=== PATIENT | male | born 1945 | race Caucasian/White ===

== ENCOUNTER 2018-05-19 23:53 | Observation (INO) | payer MEDICARE, OTHER ==
[2018-05-20] MEDS ORDERED: MORPHINE SULFATE 10 MG/ML INJ IV ONE (00:26)
[2018-05-20] MEDS ORDERED: ONDANSETRON HCL INJ/PF 4 MG/2 ML SDV IV ONE (00:26)
[2018-05-20] MEDS ORDERED: NORMAL SALINE 1000 ML 1,000 ML IV ONE ×2 (00:26→01:34)
[2018-05-20 00:58] LABS: ABSOLUTE EOSINOPHILS # (AUTO) 0.1 10^3/uL (0.0-0.6); ABSOLUTE MONOCYTES (AUTO) 1.2 10^3/uL (0.1-1.4); ABSOLUTE NEUT (AUTO) 12.4 10^3/uL (1.7-8.2); BASOPHILS % (AUTO) 0.3 % (0-2); EOSINOPHILS % (AUTO) 0.8 % (0-6); HEMATOCRIT 45.2 % (37.9-51.0); HEMOGLOBIN 15.1 g/dL (13.5-17.0); LYMPHOCYTES % (AUTO) 6.8 % (13-45); MEAN CORPUSCULAR HEMOGLOBIN 30.1 pg (27.0-33.4); MEAN CORPUSCULAR HGB CONC 33.5 g/dL (32.0-36.0); MEAN CORPUSCULAR VOLUME 90 fl (80-97); MONOCYTES % (AUTO) 7.9 % (3-13); PLATELET COUNT 284 10^3/uL (150-450); RED BLOOD COUNT 5.03 10^6/uL (4.35-5.55); SEGMENTED NEUTROPHILS % (AUTO) 84.2 % (42-78); TOTAL CELLS COUNTED % (AUTO) 100 %; WHITE BLOOD COUNT 14.8 10^3/uL (4.0-10.5)
--- NOTE | 2018-05-20 01:00 | RADIOLOGY REPORT (SQ) ---
EXAM DESCRIPTION: XR ABDOMEN SUPINE AND ERECT WITH CHEST (ABD ACUTE SERIES) COMPLETED DATE/TME: 05/20/2018 00:24 CLINICAL HISTORY: 72 years, Male, RLQ abd pain COMPARISON: None. FINDINGS: The lungs are clear. There are no pleural abnormalities. The cardiac silhouette and pulmonary vessels are normal. Scattered gas-filled loops of bowel throughout the abdomen. Multiple air-fluid levels in the right lower quadrant. No abnormal calcifications. No acute osseous abnormality. Vascular stent projected over the distal aorta and right renal artery.. IMPRESSION: Mild gaseous dilatation of the bowel and multiple air-fluid levels suggesting obstruction. Recommend correlation with CT. No acute cardiopulmonary disease.
[2018-05-20 01:11] LABS: ALANINE AMINOTRANSFERASE 30 U/L (21-72); ALBUMIN 4.5 g/dL (3.5-5.0); ALKALINE PHOSPHATASE 65 U/L (38-126); ANION GAP 13 (5-19); ASPARTATE AMINO TRANSFERASE 19 U/L (17-59); BILIRUBIN,DIRECT 0.4 mg/dL (0.0-0.4); BILIRUBIN,TOTAL 0.8 mg/dL (0.2-1.3); BLOOD UREA NITROGEN 39 mg/dL (7-20); CALCIUM 9.8 mg/dL (8.4-10.2); CARBON DIOXIDE 25 mmol/L (22-30); CHLORIDE 107 mmol/L (98-107); CREATINE KINASE 36 U/L (55-170); GLUCOSE 118 mg/dL (75-110); POTASSIUM 4.8 mmol/L (3.6-5.0); SODIUM 144.8 mmol/L (137-145); TOTAL PROTEIN 7.3 g/dL (6.3-8.2)
[2018-05-20 01:26] LABS: CREATINE KINASE MB 0.96 ng/mL (<4.55)
[2018-05-20 01:38] LABS: TROPONIN I < 0.012 ng/mL
[2018-05-20 02:09] LABS: APPEARANCE,URINE CLEAR; BILIRUBIN,URINE NEGATIVE (NEGATIVE); COLOR,URINE YELLOW; GLUCOSE, URINE NEGATIVE (NEGATIVE); KETONES,URINE NEGATIVE (NEGATIVE); LEUKOCYTE ESTERASE,URINE NEGATIVE (NEGATIVE); NITRITE,URINE NEGATIVE (NEGATIVE); PROTEIN,URINE 30 mg/dL (NEGATIVE); URINE SPECIFIC GRAVITY 1.014; UROBILINOGEN,URINE NEGATIVE mg/dL (<2.0)
--- NOTE | 2018-05-20 02:11 | RADIOLOGY REPORT (SQ) ---
CLINICAL HISTORY: RLQ pain,WBC-14K,acute renal failure COMPARISON: None. 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 FINDINGS: Lower lungs are clear. Abdomen: The liver is normal in appearance. There is no biliary dilatation. There is a small hiatal hernia. Gallbladder is normal in appearance. The pancreas and spleen are normal in appearance. Adrenal glands are normal. Right kidney is moderately atrophic. There are multiple cysts of varying sizes and densities within both kidneys but overall small. Abdominal aorta is normal in course and caliber without aneurysm. There is no free air. There is no retroperitoneal adenopathy.There is a stent in the distal abdominal aorta which itself is densely atherosclerotic. Pelvis: There is severe diverticulosis of the left colon. Urinary bladder is unremarkable. There is no free fluid. Appendix is dilated measuring 1.3 cm with surrounding inflammation. There is a femorofemoral bypass graft. Skeleton: There are no acute osseous findings. No suspicious bony lesions. IMPRESSION: Acute appendicitis.
[2018-05-20] MEDS ORDERED: PIPERACILLIN/TAZOBACTAM 3.375 GM VIAL IV ONE (02:17)
--- NOTE | 2018-05-20 03:27 | PDOC H&P ---
History of Present Illness Patient complains of: Abdominal pain History of Present Illness: MARLO BENNETT is a 72 year old male Presents emergency department via ground rescue complaining of a 3-day history of abdominal pain, periumbilical radiating to the pelvis right side and right testicle associated with some anorexia but no nausea or vomiting. Last bowel movement earlier today, normal after 2 Dulcolax suppositories. Patient denies history of GI problems, trauma, previous GI symptoms. Last colonoscopy 2 years ago, reportedly unremarkable. In the emergency department patient had right lower quadrant tenderness, leukocytosis, and unenhanced CT scan findings consistent with acute appendicitis. Surgery was consulted and he was advised admission. Of note patient's son of a drug overdose on Sunday in [facility], May 19. Past Medical History Past Medical History: Smoking abuse history, hypertension, hypercholesterolemia, COPD, coronary artery disease, atherosclerotic peripheral vascular disease, CVA, BPH Cardiac Medical History: Reports: Hypertension Past Surgical History Past Surgical History: History of aortic stent placement, left renal artery stent placement, left thumb the right PTFE graft placement, TURP March 2018, coronary artery stents placed 2014, tonsillectomy, hemorrhoidectomy Social History Information Source: Patient Smoking Status: Former Smoker Last Time Smoked: Patient smoked last 2017, previously for 50 years Hx Recreational Drug Use: No Hx Prescription Drug Abuse: No Family History Family History: None Parental Family History Reviewed: Yes Children Family History Reviewed: Yes Sibling(s) Family History Reviewed.: Yes Medication/Allergy Allergies/Adverse Reactions: No Known Allergies Allergy (Unverified 05/20/18 00:06) Review of Systems Constitutional: PRESENT: as per HPI Eyes: ABSENT: visual disturbances Ears: ABSENT: hearing changes Cardiovascular: PRESENT: dyspnea on exertion Gastrointestinal: PRESENT: as per HPI Genitourinary: PRESENT: difficulty urinating, other Integumentary: PRESENT: other - Some right lower extremity weakness Neurological: PRESENT: weakness Endocrine: ABSENT: cold intolerance, heat intolerance, polydipsia, polyuria Hematologic/Lymphatic: ABSENT: easy bleeding, easy bruising Physical Exam Vital Signs: Temp Pulse Resp BP Pulse Ox 98.5 F 98 11 L 131/77 H 94 05/20/18 02:41 05/19/18 23:56 05/20/18 02:01 05/20/18 02:01 05/20/18 02:01 Intake & Output 05/18/18 05/19/18 05/20/18 06:59 06:59 06:59 Intake Total 1000 Balance 1000 Weight 77.111 kg General appearance: PRESENT: no acute distress Head exam: PRESENT: normocephalic Eye exam: PRESENT: EOMI Mouth exam: PRESENT: dry mucosa Teeth exam: PRESENT: poor dentation Neck exam: PRESENT: full ROM Respiratory exam: PRESENT: decreased breath sounds Cardiovascular exam: PRESENT: RRR Pulses: PRESENT: normal carotid pulses, other - Left femoral pulse greater than right; pulses diminished in the left foot; unable to palpate pulses in the right foot GI/Abdominal exam: PRESENT: other - Mildly distended, localized tenderness right lower quadrant with guarding Rectal exam: PRESENT: deferred Gentrourinary exam: PRESENT: other - 12 point Extremities exam: PRESENT: full ROM Musculoskeletal exam: PRESENT: full ROM Neurological exam: PRESENT: alert, awake, oriented to person, oriented to place, oriented to time, oriented to situation Psychiatric exam: PRESENT: appropriate affect Skin exam: PRESENT: dry Results Laboratory Results: 05/20/18 00:47 05/20/18 00:47 05/20/18 05/20/18 05/20/18 00:47 00:47 00:47 WBC 14.8 H RBC 5.03 Hgb 15.1 Hct 45.2 MCV 90 MCH 30.1 MCHC 33.5 RDW 15.0 H Plt Count 284 Seg Neutrophils % 84.2 H Lymphocytes % 6.8 L Monocytes % 7.9 Eosinophils % 0.8 Basophils % 0.3 Absolute Neutrophils 12.4 H Absolute Lymphocytes 1.0 Absolute Monocytes 1.2 Absolute Eosinophils 0.1 Absolute Basophils 0.0 Sodium 144.8 Potassium 4.8 Chloride 107 Carbon Dioxide 25 Anion Gap 13 BUN 39 H Creatinine 2.56 H Est GFR ( Amer) 30 L Est GFR (Non-Af Amer) 25 L Glucose 118 H Lactic Acid 0.8 Calcium 9.8 Total Bilirubin 0.8 AST 19 ALT 30 Alkaline Phosphatase 65 Total Protein 7.3 Albumin 4.5 Urine Color Urine Appearance Urine pH Ur Specific [place] Urine Protein Urine Glucose (UA) Urine Ketones Urine Blood Urine Nitrite Ur Leukocyte Esterase Urine WBC (Auto) Urine RBC (Auto) 05/20/18 01:36 WBC RBC Hgb Hct MCV MCH MCHC RDW Plt Count Seg Neutrophils % Lymphocytes % Monocytes % Eosinophils % Basophils % Absolute Neutrophils Absolute Lymphocytes Absolute Monocytes Absolute Eosinophils Absolute Basophils Sodium Potassium Chloride Carbon Dioxide Anion Gap BUN Creatinine Est GFR ( Amer) Est GFR (Non-Af Amer) Glucose Lactic Acid Calcium Total Bilirubin AST ALT Alkaline Phosphatase Total Protein Albumin Urine Color YELLOW Urine Appearance CLEAR Urine pH 5.0 Ur Specific [place] 1.014 Urine Protein 30 H Urine Glucose (UA) NEGATIVE Urine Ketones NEGATIVE Urine Blood NEGATIVE Urine Nitrite NEGATIVE Ur Leukocyte Esterase NEGATIVE Urine WBC (Auto) 2 Urine RBC (Auto) 0 05/20/18 05/20/18 00:47 00:47 Creatine Kinase 36 L CK-MB (CK-2) 0.96 Troponin I < 0.012 Impressions: Acute Abdomen Series 05/20/18 00:24 IMPRESSION: Mild gaseous dilatation of the bowel and multiple air-fluid levels suggesting obstruction. Recommend correlation with CT. No acute cardiopulmonary disease. Abdomen/Pelvis CT 05/20/18 01:25 IMPRESSION: Acute appendicitis. Assessment & Plan - Diagnosis (1) Acute appendicitis Is this a current diagnosis for this admission?: Yes Plan: Impression: Acute appendicitis based on clinical history physical exam and CT scan findings earlier this morning; Recommendations: 1. Admit to surgical service, keep n.p.o. on IV fluids and intravenous antib iotics; EKG shows left ventricular hypertrophy and left anterior fascicular block. Chest x-ray shows no acute infiltrates 2. We will set patient up for interval laparoscopic, possible open appendec briseyda, early a.m., May 20. An explanation of the mechanics of the operation as well as risks benefits alternatives including bleeding, infection, wound healing problems, and deterioration of chronic medical problems all discussed. 3. Patient on Plavix, last taken Sunday morning according to the patient. We will proceed with appendectomy later today as the risk of rupture outweighs the increased risk of bleeding secondary to recent Plavix therapy. (2) Coronary artery disease Is this a current diagnosis for this admission?: Yes (3) History of stroke Is this a current diagnosis for this admission?: Yes (4) Chronic renal insufficiency Is this a current diagnosis for this admission?: Yes (5) Anticoagulated Is this a current diagnosis for this admission?: Yes (6) Former smoker Is this a current diagnosis for this admission?: Yes (7) Atherosclerotic peripheral vascular disease Is this a current diagnosis for this admission?: Yes (8) History of stent insertion of renal artery Is this a current diagnosis for this admission?: Yes - Time Time Spent: 50 to 70 Minutes Critical Time spent with patient: 15-24 minutes Anticipated discharge: Home Within: within 48 hours - Inpatient Certification Based on my medical assessment, after consideration of the patient's comorbidities, presenting symptoms, or acuity I expect that the services needed warrant INPATIENT care.: Yes I certify that my determination is in accordance with my understanding of Medicare's requirements for reasonable and necessary INPATIENT services [42 CFR 412.3e].: Yes Medical Necessity: Need For IV Fluids, Need for Pain Control, Need for IV Antibiotics, Need for Surgery
[2018-05-20] MEDS: RINGERS SOLUTION,LACTATED 1,000 ML IV PRN (03:59)
--- NOTE | 2018-05-20 05:47 | ER Document Report ---
Entered by ZOYA DOGULASS SCRIBE 05/20/18 0024 Acting as scribe for:SUDHA REYES MD ED GI/ - General Chief Complaint: Abdominal Pain Stated Complaint: ABDOMINAL PAIN Time Seen by Provider: 05/20/18 00:12 Mode of Arrival: Ambulatory Information source: Patient Notes: 72-year-old male that presents to the emergency department today with complaints of a 2-day history of right lower quadrant abdominal pain that radiates into his right testicle. Patient states the pain has increased in severity since onset. Patient states that he originally thought he was constipated so he took x2 laxatives and had x2 bowel movements with no change in his pain. Patient denies any nausea, vomiting, or flank pain. The patient last took his Plavix at 9 AM on Sunday morning. TRAVEL OUTSIDE OF THE [place] IN LAST 30 DAYS: No - HPI Patient complains to provider of: Abdominal pain Onset: Other - x2 days Timing/Duration: Gradual, Worse Location: RLQ, Right testicle - Related Data Allergies/Adverse Reactions: No Known Allergies Allergy (Unverified 05/20/18 00:06) Past Medical History - General Information source: Patient - Social History Smoking Status: Former Smoker - 50 year history 1-2ppd, stopped 2018 Chew tobacco use (# tins/day): No Smoking Education Provided: No Frequency of alcohol use: Rare Drug Abuse: None Lives with: Family Family History: Reviewed & Not Pertinent - Past Medical History Cardiac Medical History: Reports: Hx Coronary Artery Disease, Hx Hypercholesterolemia, Hx Hypertension Neurological Medical History: Reports: Hx Cerebrovascular Accident Renal/ Medical History: Reports: Hx Benign Prostatic Hyperplasia Past Surgical History: Reports: Hx Vascular Surgery - Femoral-femoral bypass, r ight renal artery stent, inferior aorta stent Review of Systems - Review of Systems Constitutional: No symptoms reported EENT: No symptoms reported Cardiovascular: No symptoms reported Respiratory: No symptoms reported Gastrointestinal: See HPI, Abdominal pain, Constipation. denies: Nausea Genitourinary: denies: Flank pain Male Genitourinary: See HPI, Testicular pain - right Musculoskeletal: No symptoms reported Skin: No symptoms reported Hematologic/Lymphatic: No symptoms reported Neurological/Psychological: No symptoms reported -: Yes All other systems reviewed and negative Physical Exam - Vital signs Vitals: Temp Pulse Resp BP Pulse Ox 99.4 F 98 16 126/78 H 98 05/19/18 23:56 05/19/18 23:56 05/19/18 23:56 05/19/18 23:56 05/19/18 23:56 - Notes Notes: Physical Exam: General: Alert, appears uncomfortable. HEENT: Normocephalic. Atraumatic. PERRL. Extraocular movements intact. Oropharynx clear. Neck: Supple. Non-tender. Respiratory: No respiratory distress. Clear and equal breath sounds bilaterally. Cardiovascular: Regular rate and rhythm. Abdominal: Right lower quadrant tenderness with palpation across the entire right lower fourth of the abodmen. No distension. Normal Bowel Sounds. Back: Non-tender. No deformity or step off. Extremities: Moves all four extremities. Upper extremities: Normal inspection. Normal ROM. Lower extremities: Normal inspection. No edema. Normal ROM. Neurological: Normal cognition. AAOx4. Normal speech. Psychological: Normal affect. Normal Mood. Skin: Warm. Dry. Normal color. Course - Vital Signs Vital signs: Temp Pulse Resp BP Pulse Ox 99.4 F 98 11 L 131/77 H 94 05/19/18 23:56 05/19/18 23:56 05/20/18 02:01 05/20/18 02:01 05/20/18 02:01 - Laboratory Result Diagrams: 05/20/18 00:47 05/20/18 00:47 Laboratory results interpreted by me: 05/20/18 05/20/18 05/20/18 00:47 00:47 01:36 WBC 14.8 H RDW 15.0 H Seg Neutrophils % 84.2 H Lymphocytes % 6.8 L Absolute Neutrophils 12.4 H BUN 39 H Creatinine 2.56 H Est GFR ( Amer) 30 L Est GFR (Non-Af Amer) 25 L Glucose 118 H Creatine Kinase 36 L Urine Protein 30 H - Diagnostic Test Radiology reviewed: Reports reviewed - Noncontrast CT scan of the abdomen and pelvis shows acute appendicitis. - EKG Interpretation by Me EKG shows normal: Sinus rhythm, [place], Intervals, QRS Complexes, ST-T Waves Rate: Normal - 88 Rhythm: NSR [place]/QRS: LAHB/LAFB Voltage: Consistant with LVH When compared to previous EKG there are: Previous EKG unavailable - Consults Dr. Palafox Time consulted: 02:17 Consulted provider: will come to ER Discharge - Discharge Clinical Impression: Acute appendicitis Qualifiers: Acute appendicitis type: with localized peritonitis Appendicitis gangrene pre sence: unspecified whether gangrene present Appendicitis perforation presence: without perforation Appendicitis abscess presence: without abscess Qualified Code(s): K35.30 - Acute appendicitis with localized peritonitis, without perforation or gangrene [id number] renal failure Qualifiers: Acute renal failure type: unspecified Chronic kidney disease stage: stage 4 (severe) Qualified Code(s): N17.9 - Acute kidney failure, unspecified; N18.4 - Chronic kidney disease, stage 4 (severe) Condition: Good Disposition: ADMITTED INPATIENT Unit Admitted: Surgical Floor Scribe Attestation: 05/20/18 00:47 I personally performed the services described in the documentation, reviewed and edited the documentation which was dictated to the scribe in my presence, and it accurately records my words and actions. I personally performed the services described in the documentation, reviewed and edited the documentation which was dictated to the scribe in my presence, and it accurately records my words and actions.
--- NOTE | 2018-05-20 06:59 | EKG REPORT ---
SEVERITY:- ABNORMAL ECG - SINUS RHYTHM LEFT ANTERIOR FASCICULAR BLOCK PROBABLE LEFT VENTRICULAR HYPERTROPHY : Confirmed by: Kenny Root 20-May-2018 06:58:20
[2018-05-20] MEDS ORDERED: MIDAZOLAM 2 MG/2 ML INJ ONE (08:19)
[2018-05-20] MEDS ORDERED: HYDROMORPHONE HCL INJ/PF 2 MG/ML AMPULE ONE (08:19)
[2018-05-20] MEDS ORDERED: ACETAMINOPHEN 0 MG/0 ML RTUPB IV ONE (08:20)
[2018-05-20] MEDS ORDERED: PROPOFOL INJ 200 MG/20 ML VIAL IV ONE (08:20)
[2018-05-20] MEDS ORDERED: FENTANYL CITRATE INJ/PF 100 MCG/2 ML AMPUL ONE (08:27)
[2018-05-20] MEDS: BUPIVACAINE HCL 0.5%-EPI 1:200000 INJ/PF 30 ML VIAL ONE ×2 (09:18→09:42)
[2018-05-20] MEDS: PIPERACILLIN SODIUM/TAZOBACTAM 3.375 GM in NORMAL SALINE 100 ML IV SCH ×2 (09:52→17:08)
--- NOTE | 2018-05-20 10:08 | Operative Report ---
Nonrecallable Operative Report DATE OF SURGERY: 05/20/18 PREOPERATIVE DIAGNOSIS: appendicitis POSTOPERATIVE DIAGNOSIS: perforated appendicitis OPERATION: laparoscopic appendectomy SURGEON: WENDY FAIR ANESTHESIA: GA TISSUE REMOVED OR ALTERED: appendix COMPLICATIONS: none ESTIMATED BLOOD LOSS: 10cc INTRAOPERATIVE FINDINGS: perforated appendicitis PROCEDURE: see dictation
[2018-05-20] MEDS ORDERED: DIPHENHYDRAMINE HCL 50 MG/ML VIAL IV PRN (10:20)
[2018-05-20] MEDS ORDERED: MORPHINE SULFATE 10 MG/ML INJ IV PRN ×2 (10:20→11:06)
[2018-05-20] MEDS ORDERED: FENTANYL CITRATE INJ/PF 100 MCG/2 ML AMPUL IV PRN ×3 (10:20)
[2018-05-20] MEDS ORDERED: PROMETHAZINE HCL INJ 25 MG/1 ML VIAL IV PRN (10:20)
[2018-05-20] MEDS ORDERED: ONDANSETRON HCL INJ/PF 4 MG/2 ML SDV IV PRN (10:20)
[2018-05-20] MEDS ORDERED: MEPERIDINE HCL/PF INJ 25 MG/1 ML DISP.SYRIN IV PRN (10:20)
--- NOTE | 2018-05-20 10:33 | OPERATIVE REPORT E ---
Operative Report NAME: MARLO BENNETT : 1945 AGE: 72Y DATE OF SURGERY: 05/20/2018 ROOM: 209 PREOPERATIVE DIAGNOSIS: Appendicitis. POSTOPERATIVE DIAGNOSIS: Perforated appendicitis. OPERATIVE PROCEDURE: Laparoscopic appendectomy. SURGEON: WENDY FAIR M.D. GLASSWARE VERIFIER: Dorian Quijano, 3rd year medical student ANESTHESIA: General. INDICATIONS FOR PROCEDURE: This is a 72-year-old male who presented last evening with signs and symptoms consistent with acute appendicitis. CT scan confirmed that and he was brought to the operating room for this procedure. PROCEDURE: The patient was brought to the operating room in an awake and alert stable condition, placed on the operating table in supine position, induced under general anesthesia, and intubated. The abdomen was prepped and draped in the usual sterile fashion for the procedure. A Veress needle was placed into the umbilicus and the abdomen was insufflated with 6 L of CO2 gas. A supraumbilical 10 mm incision was made with a 12 blade and a 10 mm port placed in the abdominal cavity. Intra-abdominal visualization revealed no evidence of needle or trocar injury; however, there was some murky purulent fluid noted in the right lower quadrant. A suprapubic 5 mm port was placed under direct vision and a left lower quadrant 12 mm port under direct vision. The appendix was identified. It was noted to be acutely inflamed with a perforation at its base. It was mobilized from the lateral peritoneal attachments with Bovie cautery. The mesosalpinx was divided with 1 firing of the EndoGIA stapler with a vascular load and then we came across the base of the appendix on the cecum with 1 firing of the EndoGIA stapler with a blue load. The appendix was placed in an Endobag and removed through the left lower quadrant port site. The right lower quadrant and pelvis was irrigated with normal saline, suctioned dry, hemostasis noted to be intact. We then closed both 10 mm fascial defects with 0 Vicryl and the skin was closed with intracuticular 4-0 Monocryl. Steri-Strips completed the procedure. Estimated blood loss was less than 10 mL. Sponge and needle counts were correct x2. The patient was extubated in the operating room and transferred to recovery in stable condition. No complications. DICTATING PHYSICIAN: WENDY FAIR M.D. [id number] PHY#: [id number] ID: [id number] JOB#: [id number] ACCT: [id number] cc:WENDY FAIR M.D. >
[2018-05-20] MEDS ORDERED: DEXAMETHASONE SOD PHOSPHATE INJ 4 MG/1 ML VIAL ONE (12:11)
[2018-05-20] MEDS ORDERED: ROCURONIUM BROMIDE INJ 50 MG/5 ML VIAL IV ONE (12:11)
[2018-05-20] MEDS ORDERED: ONDANSETRON HCL INJ/PF 4 MG/2 ML SDV ONE (12:11)
[2018-05-20] MEDS ORDERED: PHENYLEPHRINE HCL INJ/PF 10 MG/1 ML SDV ONE (12:11)
[2018-05-20] MEDS ORDERED: SUCCINYLCHOLINE CHLORIDE INJ 200 MG/10 ML VIAL ONE (12:11)
[2018-05-20] MEDS ORDERED: TAMSULOSIN HCL 0.4 MG CAP.SR.24H PO ONE (17:00)
[2018-05-20] MEDS ORDERED: OXYCODONE-ACETAMINOPHEN 5-325 MG TABLET PO PRN (17:59)
[2018-05-21] MEDS: PIPERACILLIN SODIUM/TAZOBACTAM 3.375 GM in NORMAL SALINE 100 ML IV SCH ×3 (02:04→17:51)
[2018-05-21] MEDS: RINGERS SOLUTION,LACTATED 1,000 ML IV PRN (02:04)
[2018-05-21] MEDS: LANSOPRAZOLE 30 MG TAB.RAP.DR PO SCH (05:21)
[2018-05-21 09:25] LABS: ABSOLUTE LYMPHOCYTES (AUTO) 0.7 10^3/uL (0.5-4.7); ABSOLUTE MONOCYTES (AUTO) 0.2 10^3/uL (0.1-1.4); BASOPHILS % (AUTO) 0.1 % (0-2); EOSINOPHILS % (AUTO) 0.1 % (0-6); HEMATOCRIT 37.4 % (37.9-51.0); LYMPHOCYTES % (AUTO) 6.7 % (13-45); MEAN CORPUSCULAR HEMOGLOBIN 30.6 pg (27.0-33.4); MEAN CORPUSCULAR HGB CONC 33.7 g/dL (32.0-36.0); MEAN CORPUSCULAR VOLUME 91 fl (80-97); MONOCYTES % (AUTO) 2.3 % (3-13); PLATELET COUNT 236 10^3/uL (150-450); RED BLOOD COUNT 4.13 10^6/uL (4.35-5.55); RED CELL DISTRIBUTION WIDTH 15.4 % (11.5-14.0); SEGMENTED NEUTROPHILS % (AUTO) 90.8 % (42-78); TOTAL CELLS COUNTED % (AUTO) 100 %
[2018-05-21 09:26] LABS: HEMOGLOBIN 12.6 g/dL (13.5-17.0)
[2018-05-21 09:49] LABS: ANION GAP 10 (5-19); BLOOD UREA NITROGEN 30 mg/dL (7-20); CALCIUM 8.6 mg/dL (8.4-10.2); CARBON DIOXIDE 24 mmol/L (22-30); CHLORIDE 110 mmol/L (98-107); GLUCOSE 141 mg/dL (75-110); POTASSIUM 4.7 mmol/L (3.6-5.0); SODIUM 143.5 mmol/L (137-145)
[2018-05-21] MEDS ORDERED: TAMSULOSIN HCL 0.4 MG CAP.SR.24H PO SCH (10:00)
[2018-05-21] MEDS ORDERED: CLOPIDOGREL BISULFATE 75 MG TABLET PO SCH (10:00)
[2018-05-21] MEDS ORDERED: SERTRALINE HCL 50 MG TABLET PO SCH (10:00)
[2018-05-21] MEDS ORDERED: (PENDING PHARMACY ID) (Esomeprazole Mag Trihydrate [Nexium] 40 MG) PO SCH (10:00)
[2018-05-21] MEDS ORDERED: ASPIRIN 81 MG TABLET, ENT COATED PO SCH (10:00)
[2018-05-21] MEDS ORDERED: RAMIPRIL 2.5 MG CAPSULE PO SCH (10:00)
[2018-05-21] MEDS ORDERED: ACETAMINOPHEN 325 MG TABLET PO PRN (13:27)
--- NOTE | 2018-05-21 13:27 | PDOC PROGRESS REPORT ---
Subjective Progress Note for:: 05/21/18 Subjective:: comfortable, tolerating clear liquid diet well Reason For Visit: ACUTE APPENDICITIS Physical Exam Vital Signs: Temp Pulse Resp BP Pulse Ox 98.2 F 81 16 134/71 H 97 05/21/18 12:00 05/21/18 12:00 05/21/18 12:00 05/21/18 12:00 05/21/18 12:00 Intake & Output 05/20/18 05/21/18 05/22/18 06:59 06:59 06:59 Intake Total 1999 3090 100 Output Total 250 1565 Balance 1750 1525 100 Weight 77.111 kg 79.6 kg General appearance: PRESENT: no acute distress Respiratory exam: PRESENT: clear to auscultation lionel Cardiovascular exam: PRESENT: RRR GI/Abdominal exam: PRESENT: distended, hypoactive bowel sounds, soft, other - incisions c/d/i Results Laboratory Results: 05/21/18 08:58 05/21/18 08:58 05/21/18 05/21/18 08:58 08:58 WBC 11.0 H RBC 4.13 L Hgb 12.6 L D Hct 37.4 L MCV 91 MCH 30.6 MCHC 33.7 RDW 15.4 H Plt Count 236 Seg Neutrophils % 90.8 H Lymphocytes % 6.7 L Monocytes % 2.3 L Eosinophils % 0.1 Basophils % 0.1 Absolute Neutrophils 10.0 H Absolute Lymphocytes 0.7 Absolute Monocytes 0.2 Absolute Eosinophils 0.0 Absolute Basophils 0.0 Sodium 143.5 Potassium 4.7 Chloride 110 H Carbon Dioxide 24 Anion Gap 10 BUN 30 H Creatinine 2.32 H Est GFR ( Amer) 34 L Est GFR (Non-Af Amer) 28 L Glucose 141 H Calcium 8.6 05/20/18 05/20/18 00:47 00:47 Creatine Kinase 36 L CK-MB (CK-2) 0.96 Troponin I < 0.012 Impressions: Acute Abdomen Series 05/20/18 00:24 IMPRESSION: Mild gaseous dilatation of the bowel and multiple air-fluid levels suggesting obstruction. Recommend correlation with CT. No acute cardiopulmonary disease. Abdomen/Pelvis CT 05/20/18 01:25 IMPRESSION: Acute appendicitis. Assessment & Plan - Diagnosis (1) Acute appendicitis with perforation and localized peritonitis Qualifiers: Appendicitis gangrene presence: without gangrene Appendicitis abscess presence: without abscess Qualified Code(s): K35.32 - Acute appendicitis with perforation and localized peritonitis, without abscess Is this a current diagnosis for this admission?: Yes - Plan Summary Plan Summary: A/ POD#1 katelyn ku p[erforated appendicitis VSS, AF patient tolerating po well WBC 11 Slght erlervation BUN/Creat P/ Continue IV abx as ordered Stop IV narcotics repeat blood work in AM
[2018-05-22] MEDS ORDERED: TRAMADOL HCL 50 MG TABLET PO PRN (00:10)
[2018-05-22] MEDS: PIPERACILLIN SODIUM/TAZOBACTAM 3.375 GM in NORMAL SALINE 100 ML IV SCH (01:35)
[2018-05-22] MEDS: LANSOPRAZOLE 30 MG TAB.RAP.DR PO SCH (06:44)
[2018-05-22 07:03] LABS: ABSOLUTE EOSINOPHILS # (AUTO) 0.5 10^3/uL (0.0-0.6); ABSOLUTE LYMPHOCYTES (AUTO) 1.2 10^3/uL (0.5-4.7); ABSOLUTE MONOCYTES (AUTO) 0.9 10^3/uL (0.1-1.4); ABSOLUTE NEUT (AUTO) 6.4 10^3/uL (1.7-8.2); ANION GAP 9 (5-19); BASOPHILS % (AUTO) 0.5 % (0-2); BLOOD UREA NITROGEN 29 mg/dL (7-20); CALCIUM 8.8 mg/dL (8.4-10.2); CARBON DIOXIDE 24 mmol/L (22-30); CHLORIDE 112 mmol/L (98-107); EOSINOPHILS % (AUTO) 5.8 % (0-6); GLUCOSE 90 mg/dL (75-110); HEMATOCRIT 36.7 % (37.9-51.0); HEMOGLOBIN 12.4 g/dL (13.5-17.0); LYMPHOCYTES % (AUTO) 13.6 % (13-45); MEAN CORPUSCULAR HEMOGLOBIN 30.2 pg (27.0-33.4); MEAN CORPUSCULAR HGB CONC 33.7 g/dL (32.0-36.0); MEAN CORPUSCULAR VOLUME 89 fl (80-97); MONOCYTES % (AUTO) 9.5 % (3-13); PLATELET COUNT 237 10^3/uL (150-450); POTASSIUM 4.8 mmol/L (3.6-5.0); RED BLOOD COUNT 4.11 10^6/uL (4.35-5.55); RED CELL DISTRIBUTION WIDTH 15.3 % (11.5-14.0); SEGMENTED NEUTROPHILS % (AUTO) 70.6 % (42-78); SODIUM 144.9 mmol/L (137-145); TOTAL CELLS COUNTED % (AUTO) 100 %; WHITE BLOOD COUNT 9.1 10^3/uL (4.0-10.5)
--- NOTE | 2018-05-22 09:15 | PDOC PROGRESS REPORT ---
Subjective Progress Note for:: 05/22/18 Subjective:: c/o abdominal distention, tolerating po well, pasing flatus and stools (liquid) Reason For Visit: ACUTE APPENDICITIS Physical Exam Vital Signs: Temp Pulse Resp BP Pulse Ox 98.6 F 75 18 182/89 H 98 05/22/18 07:44 05/22/18 07:44 05/22/18 07:44 05/22/18 07:44 05/22/18 07:44 Intake & Output 05/21/18 05/22/18 05/23/18 06:59 06:59 06:59 Intake Total 3090 300 Output Total 1565 750 Balance 1525 -450 Weight 79.6 kg 79.6 kg General appearance: PRESENT: no acute distress Respiratory exam: PRESENT: clear to auscultation lionel Cardiovascular exam: PRESENT: RRR GI/Abdominal exam: PRESENT: distended - slightly, no peritoneal signs, all incisions are c/d/i, soft Results Laboratory Results: 05/22/18 06:13 05/22/18 06:13 05/21/18 05/21/18 05/22/18 08:58 08:58 06:13 WBC 11.0 H 9.1 RBC 4.13 L 4.11 L Hgb 12.6 L D 12.4 L Hct 37.4 L 36.7 L MCV 91 89 MCH 30.6 30.2 MCHC 33.7 33.7 RDW 15.4 H 15.3 H Plt Count 236 237 Seg Neutrophils % 90.8 H 70.6 Lymphocytes % 6.7 L 13.6 Monocytes % 2.3 L 9.5 Eosinophils % 0.1 5.8 Basophils % 0.1 0.5 Absolute Neutrophils 10.0 H 6.4 Absolute Lymphocytes 0.7 1.2 Absolute Monocytes 0.2 0.9 Absolute Eosinophils 0.0 0.5 Absolute Basophils 0.0 0.0 Sodium 143.5 Potassium 4.7 Chloride 110 H Carbon Dioxide 24 Anion Gap 10 BUN 30 H Creatinine 2.32 H Est GFR ( Amer) 34 L Est GFR (Non-Af Amer) 28 L Glucose 141 H Calcium 8.6 05/22/18 06:13 WBC RBC Hgb Hct MCV MCH MCHC RDW Plt Count Seg Neutrophils % Lymphocytes % Monocytes % Eosinophils % Basophils % Absolute Neutrophils Absolute Lymphocytes Absolute Monocytes Absolute Eosinophils Absolute Basophils Sodium 144.9 Potassium 4.8 Chloride 112 H Carbon Dioxide 24 Anion Gap 9 BUN 29 H Creatinine 2.43 H Est GFR ( Amer) 32 L Est GFR (Non-Af Amer) 27 L Glucose 90 Calcium 8.8 05/20/18 05/20/18 00:47 00:47 Creatine Kinase 36 L CK-MB (CK-2) 0.96 Troponin I < 0.012 Impressions: Acute Abdomen Series 05/20/18 00:24 IMPRESSION: Mild gaseous dilatation of the bowel and multiple air-fluid levels suggesting obstruction. Recommend correlation with CT. No acute cardiopulmonary disease. Abdomen/Pelvis CT 05/20/18 01:25 IMPRESSION: Acute appendicitis. Assessment & Plan - Diagnosis (1) Acute appendicitis with perforation and localized peritonitis Qualifiers: Appendicitis gangrene presence: without gangrene Appendicitis abscess presence: without abscess Qualified Code(s): K35.32 - Acute appendicitis with perforation and localized peritonitis, without abscess Is this a current diagnosis for this admission?: Yes - Plan Summary Plan Summary: A/ POD#2 after lap appy fpr perforated appendicitis VSS, AF Flatus and stools present WBC 9 Abdomen slightly distended but soft, wounds healing P/ Home today f/u Dr. Drummond in 10 days Cipro 500 mg po BID x 10 days Flagyl 500 mg po TID x 10 days Ultram 50 mg po q6 as needed for pain Shower only, bathein 2 weeks after surgery Activities as tolerated, no limitations No wound care needed Resume home meds Regular diet Follow up with your PCP in 1-2 weeks
[2018-05-22 09:23] VITALS: BP 134/71
--- NOTE | 2018-05-22 09:53 | DISCHARGE SUMMARY E ---
Discharge Summary NAME: MARLO BENNETT : 1945 AGE: 72Y ADMITTED: 05/20/2018 DISCHARGED: 05/22/2018 FINAL DIAGNOSIS: Acute appendicitis with microperforation. PROCEDURE: On May 20 the patient underwent a laparoscopic appendectomy. COMPLICATIONS: None. HOSPITAL COURSE: This is a 72-year-old male who presented to the emergency room on May 20 complaining of abdominal pain and intense nausea and found to have an acute appendicitis. The patient was taken to surgery and underwent a laparoscopic appendectomy which revealed a microperforated acute appendicitis. The procedure was uneventful. The patient was then discharged to the floor. His diet was advanced. White blood cell count was initially 14,000 and progressively decreased to normal. On the day of discharge the patient had stable vital signs. He was hypertensive at 134/71. White blood cell count was normal at 9. On physical exam his abdomen was slightly distended but nontender. The incision was clean, dry, and intact. The patient was able to tolerate p.o. He presented with flatus and stools. DISCHARGE ORDERS: The patient was discharged to go home on May 22, 2018. Follow up with Dr. Drummond in the office in 10 days. Follow up with primary care physician. The patient can shower; bathing allowed in 2 weeks. Regular diet. Activity as tolerated. No wound care needed. The patient was given Cipro 500 mg p.o. b.i.d. for 10 days, Flagyl 500 mg p.o. t.i.d. for 10 days, and Ultram 50 mg p.o. every 6 hours as needed for pain #10 pills. Tylenol afterwards. DICTATING PHYSICIAN: TIMA HUDSON M.D. [id number] PHY#: [id number] ID: [id number] JOB#: [id number] ACCT: [id number] cc:Raysa NATARAJAN M.D. > [facility]
[2018-05-27] MEDS ORDERED: CLONIDINE 0.1 MG/24 HR PATCH.TDWK TD SCH (10:00)
== END 2018-05-22 09:33 | disposition home or self-care (01) ==
LOC: ER 23:53 → EH 05-20 03:42 → 2N 05-20 05:05
PROVIDERS: ATTEND Surgery
PROC: 0DTJ4ZZ Resection of Appendix, Percutaneous Endoscopic Approach (ICD-10-PCS; principal; 2018-05-20 08:45)
DX: K35.32 Acute appendicitis with perforation, localized peritonitis, and gangrene, without abscess (principal); I25.10 Atherosclerotic heart disease of native coronary artery without angina pectoris; N50.811 Right testicular pain; K59.00 Constipation, unspecified; R39.198 Other difficulties with micturition; R53.1 Weakness; R06.09 Other forms of dyspnea; I12.9 Hypertensive chronic kidney disease with stage 1 through stage 4 chronic kidney disease, or unspecified chronic kidney disease; N18.4 Chronic kidney disease, stage 4 (severe); N17.9 Acute kidney failure, unspecified; I44.4 Left anterior fascicular block; I70.209 Unspecified atherosclerosis of native arteries of extremities, unspecified extremity; Z87.891 Personal history of nicotine dependence; Z63.4 Disappearance and death of family member; Z95.5 Presence of coronary angioplasty implant and graft; Z86.73 Personal history of transient ischemic attack (TIA), and cerebral infarction without residual deficits; Z79.01 Long term (current) use of anticoagulants; Z95.828 Presence of other vascular implants and grafts
CPT/HCPCS: 93005; 99285; 96361; 96375; 96365; 36415 ×3; 82553; 82550; 85025 ×3; 80048 ×2; 80053; 81001; 84484; 83605; 88304 ×2; 74022; 74176; 93010; 44970; A9270 ×11; J2250; J3490 ×2; J1100; J2270; J1170; J2370; J0330; J2405; J7030; J7120 ×2; J2704; J2543 ×3; 840; J0131; J3010